=== PATIENT | female | born 1980 | race Caucasian/White ===

== ENCOUNTER 2019-11-13 13:45 | Emergency (ER) | payer OTHER ==
[2019-11-13] MEDS ORDERED: DUONEB 0.5-3 MG/3 ml Neb IH ONE ×2 (14:31→14:54)
[2019-11-13 15:18] LABS: Absolute Neutrophil Ct (ANC) 5.15 (1.4-6.9); BASOPHIL % 0.2 % (0.0-0.4); Basophil (Absolute #) 0.02 (0-0.4); Eosinophil % 2.6 % (0.00-5.0); Eosinophil (Absolute #) 0.21 (0-0.5); Hematocrit 43.2 % (35-47); Hemoglobin 14.9 gm/dl (12.0-16.0); Lymphocyte (Absolute #) 2.21 (1.0-4.6); Lymphocytes % 27.4 % (24.0-44.0); Mean Cell Volume 86.4 fl (78-100); Mean Corpuscular Hemoglobin 29.8 pg (26-32); Mean Corpuscular Hgb Concent. 34.5 g/dl (32-36); Mean Platelet Volume 11.1 fl (7.5-11.0); Monocyte (Absolute #) 0.48 (0.0-1.3); Monocytes % 5.9 % (0.0-12.0); Neutrophil % 63.9 % (36.0-66.0); Platelet Count 198 K/mm3 (150-450); Red Cell Distribution Width 13.3 % (11.5-14.0); White Blood Count 8.1 K/mm3 (4.0-10.5)
--- NOTE | 2019-11-13 15:19 | ERPHSYRPT ---
- History of Present Illness Time Seen by Provider: 11/13/19 14:24 Historian: patient Patient Subjective Stated Complaint: Patient states that she woke up with stiffness, tried to smoke a cigarette but could not. Patient tried to take a shower, but began feeling worse. Patient said that she tried to stretch it out, but began wheezing. States that she her tenderness in her sternal area with inhalation and a knot feeling underneath left shoulder blade. Triage Nursing Assessment: Patient ambualtory, alert and oriented, pink, warm and dry with face flushed. Physician History: 39 years old female with history of asthma, tobacco abuse presented in the ER with chief complaint of sudden onset substernal chest pain with shortness of breath and wheezing around 12:30 PM when she woke up. Patient reports she feels some tightness and lump feeling in the left lower back chest. Patient describes this as a feeling of tightness and stretching, aggravated with applying pressure at the back of chest and no significant relieving factors and wheezing is improved on the way to the ER. She is not short of breath at present. No fever or chills. She has a chronic smoker cough which is not any different than usual. Patient reports she was working with another person who is placed on quarantine 2 days ago for questionable coronavirus exposure but he did not have any symptoms. No definitive positive coronavirus contact. Denies any body aches, URI symptoms. Does not take any hormonal pills. No swelling in the legs. No recent travel. Timing/Duration: today, sudden, improved Activities at Onset: sleep Quality: sharpness Location: central, back Chest Pain Radiation: back Severity of Pain-Max: moderate Severity of Pain-Current: none Modifying Factors: Improves With: coughing, movement, palpation Associated Symptoms: cough, No chills, No fever, No fatigue, No weakness, No swelling/lump in chest Prior Chest Pain/Cardiac Workup: no prior chest pain Nitro Today/Relief: no nitro taken today Aspirin Treatment Today: no aspirin today Allergies/Adverse Reactions: codeine Allergy (Verified 11/13/19 14:17) Patient becomes violent Hx Tetanus, Diphtheria Vaccination/Date Given: Yes Hx Influenza Vaccination/Date Given: No Hx Pneumococcal Vaccination/Date Given: No - Past Medical History Neurological History: Migraines ENT History: No Pertinent History Cardiac History: No Pertinent History Respiratory History: Asthma Endocrine Medical History: No Pertinent History Musculoskeletal History: Arthritis GI Medical History: Other History: No Pertinent History Psycho-Social History: Depression Female Reproductive Disorders: No Pertinent History Other Medical History: chronic nausea - Past Surgical History Past Surgical History: Yes Neuro Surgical History: No Pertinent History Cardiac: No Pertinent History Respiratory: No Pertinent History Gastrointestinal: No Pertinent History Genitourinary: No Pertinent History Musculoskeletal: No Pertinent History Female Surgical History: No Pertinent History - Social History Smoking Status: Current every day smoker How long have you smoked: 20 Exposure to second hand smoke: Yes Drug Use: marijuana Patient Lives Alone: No - Female History Hx Last Menstrual Period: currently menstruating Hx Now: No - Nursing Vital Signs Nursing Vital Signs: Initial Vital Signs Temperature 98.2 F 11/13/19 13:47 Pulse Rate 75 11/13/19 13:47 Respiratory Rate 20 11/13/19 13:47 Blood Pressure 116/65 11/13/19 13:47 O2 Sat by Pulse Oximetry 94 L 11/13/19 13:47 Pain Scale Pain Intensity 7 - Physical Exam General Appearance: no apparent distress, anxiety Eye Exam: PERRL/EOMI, eyes nml inspection Ears, Nose, Throat Exam: normal ENT inspection, TMs normal, pharynx normal Neck Exam: normal inspection, non-tender, supple, full range of motion Respiratory Exam: normal breath sounds, lungs clear, No chest tenderness, No respiratory distress Cardiovascular Exam: regular rate/rhythm, normal heart sounds, normal peripheral pulses Gastrointestinal/Abdomen Exam: soft, normal bowel sounds, No tenderness Back Exam: normal inspection, other (Tenderness left mid posterior chest. 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 Skin Exam: normal color, warm SpO2 Interpretation: normal SpO2: 98 O2 Delivery: Room Air - Course Nursing assessment & vital signs reviewed: Yes EKG Interpreted by Me: RATE (75), NORMAL AXIS, NORMAL INTERVALS, Non-specific ST Changes (Nonspecific T wave changes) Ordered Tests: Active Orders 24 hr Category Date Time Status EKG-ER Only STAT Care 11/13/19 14:31 Active IV Insertion STAT Care 11/13/19 14:31 Active CHEST 1 VIEW (PORTABLE) Stat Exams 11/13/19 14:31 Completed CBC W DIFF Stat Lab 11/13/19 15:10 Completed CMP Stat Lab 11/13/19 15:10 Completed D-DIMER QUANTITATIVE Stat Lab 11/13/19 15:10 Completed HCG QUALITATIVE,SERUM Stat Lab 11/13/19 15:10 Completed Lactic Acid Stat Lab 11/13/19 15:20 Completed TROPONIN Q3H Lab 11/13/19 15:10 Completed TROPONIN Q3H Lab 11/13/19 17:45 Ordered TROPONIN Q3H Lab 11/13/19 20:45 Ordered TROPONIN Q3H Lab 11/13/19 23:45 Ordered TROPONIN Q3H Lab 11/14/19 02:45 Ordered Respiratory Therapy Assessment DAILY RT 11/13/19 15:58 Completed Medication Summary Discontinued Medications Generic Name Dose Route Start Last Admin Trade Name Freq PRN Reason Stop Dose Admin Albuterol/Ipratropium 3 ml 11/13/19 14:31 11/13/19 15:30 Duoneb 0.5-3 Mg/3 Ml Neb IH 11/13/19 14:32 3 ml STAT ONE Administration Albuterol/Ipratropium Confirm 11/13/19 14:54 Duoneb 0.5-3 Mg/3 Ml Neb Administered 11/13/19 14:55 Dose 3 ml IH .STK-MED ONE Ondansetron HCl 4 mg 11/13/19 15:35 11/13/19 15:40 Zofran 4 Mg/2 Ml Vial IV 11/13/19 15:36 4 mg STAT ONE Administration Ondansetron HCl Confirm 11/13/19 15:38 Zofran 4 Mg/2 Ml Vial Administered 11/13/19 15:39 Dose 4 mg .ROUTE .STK-MED ONE Lab/Rad Data: Laboratory Result Diagrams 11/13/19 15:10 11/13/19 15:10 Laboratory Results 11/13/19 11/13/19 11/13/19 Range/Units 15:20 15:11 15:10 WBC (4.0-10.5) K/mm3 RBC (4.1-5.4) M/mm3 Hgb (12.0-16.0) gm/dl Hct (35-47) % MCV (78-100) fl MCH (26-32) pg MCHC (32-36) g/dl RDW (11.5-14.0) % Plt Count (150-450) K/mm3 MPV (7.5-11.0) fl Gran % (36.0-66.0) % Eos # (Auto) (0-0.5) Absolute Lymphs (auto) (1.0-4.6) Absolute Monos (auto) (0.0-1.3) Lymphocytes % (24.0-44.0) % Monocytes % (0.0-12.0) % Eosinophils % (0.00-5.0) % Basophils % (0.0-0.4) % Absolute Granulocytes (1.4-6.9) Basophils # (0-0.4) D-Dimer (215-500) ng/mL Sodium (137-145) mmol/L Potassium (3.5-5.1) mmol/L Chloride (98-107) mmol/L Carbon Dioxide (22-30) mmol/L Anion Gap (5-15) MEQ/L BUN (7-17) mg/dL Creatinine (0.52-1.04) mg/dL Estimated GFR ML/MIN Glucose (74-106) mg/dL Lactic Acid 1.1 Calcium (8.4-10.2) mg/dL Total Bilirubin (0.2-1.3) mg/dL AST (14-36) U/L ALT (0-35) U/L Alkaline Phosphatase (38-126) U/L Troponin I < 0.012 (0.000-0.034) ng/mL Serum Total Protein (6.3-8.2) g/dL Albumin (3.5-5.0) g/dL Serum , Qual (Negative) Influenza Type A Ag NEGATIVE (NEGATIVE) Influenza Type B Ag NEGATIVE (NEGATIVE) RSV (PCR) NEGATIVE (Negative) 11/13/19 11/13/19 11/13/19 Range/Units 15:10 15:10 15:10 WBC (4.0-10.5) K/mm3 RBC (4.1-5.4) M/mm3 Hgb (12.0-16.0) gm/dl Hct (35-47) % MCV (78-100) fl MCH (26-32) pg MCHC (32-36) g/dl RDW (11.5-14.0) % Plt Count (150-450) K/mm3 MPV (7.5-11.0) fl Gran % (36.0-66.0) % Eos # (Auto) (0-0.5) Absolute Lymphs (auto) (1.0-4.6) Absolute Monos (auto) (0.0-1.3) Lymphocytes % (24.0-44.0) % Monocytes % (0.0-12.0) % Eosinophils % (0.00-5.0) % Basophils % (0.0-0.4) % Absolute Granulocytes (1.4-6.9) Basophils # (0-0.4) D-Dimer < 215 L (215-500) ng/mL Sodium 141 (137-145) mmol/L Potassium 3.7 (3.5-5.1) mmol/L Chloride 111 H (98-107) mmol/L Carbon Dioxide 24 (22-30) mmol/L Anion Gap 9.2 (5-15) MEQ/L BUN 10 (7-17) mg/dL Creatinine 0.59 (0.52-1.04) mg/dL Estimated GFR > 60.0 ML/MIN Glucose 86 (74-106) mg/dL Lactic Acid Calcium 9.0 (8.4-10.2) mg/dL Total Bilirubin 0.40 (0.2-1.3) mg/dL AST 18 (14-36) U/L ALT 10 (0-35) U/L Alkaline Phosphatase 91 (38-126) U/L Troponin I (0.000-0.034) ng/mL Serum Total Protein 6.4 (6.3-8.2) g/dL Albumin 3.9 (3.5-5.0) g/dL Serum , Qual NEGATIVE (Negative) Influenza Type A Ag (NEGATIVE) Influenza Type B Ag (NEGATIVE) RSV (PCR) (Negative) 11/13/19 11/13/19 Range/Units 15:10 14:31 WBC 8.1 (4.0-10.5) K/mm3 RBC 5.00 (4.1-5.4) M/mm3 Hgb 14.9 (12.0-16.0) gm/dl Hct 43.2 (35-47) % MCV 86.4 (78-100) fl MCH 29.8 (26-32) pg MCHC 34.5 (32-36) g/dl RDW 13.3 (11.5-14.0) % Plt Count 198 (150-450) K/mm3 MPV 11.1 H (7.5-11.0) fl Gran % 63.9 (36.0-66.0) % Eos # (Auto) 0.21 (0-0.5) Absolute Lymphs (auto) 2.21 (1.0-4.6) Absolute Monos (auto) 0.48 (0.0-1.3) Lymphocytes % 27.4 (24.0-44.0) % Monocytes % 5.9 (0.0-12.0) % Eosinophils % 2.6 (0.00-5.0) % Basophils % 0.2 (0.0-0.4) % Absolute Granulocytes 5.15 (1.4-6.9) Basophils # 0.02 (0-0.4) D-Dimer (215-500) ng/mL Sodium (137-145) mmol/L Potassium (3.5-5.1) mmol/L Chloride (98-107) mmol/L Carbon Dioxide (22-30) mmol/L Anion Gap (5-15) MEQ/L BUN (7-17) mg/dL Creatinine (0.52-1.04) mg/dL Estimated GFR ML/MIN Glucose (74-106) mg/dL Lactic Acid Cancelled Calcium (8.4-10.2) mg/dL Total Bilirubin (0.2-1.3) mg/dL AST (14-36) U/L ALT (0-35) U/L Alkaline Phosphatase (38-126) U/L Troponin I (0.000-0.034) ng/mL Serum Total Protein (6.3-8.2) g/dL Albumin (3.5-5.0) g/dL Serum , Qual (Negative) Influenza Type A Ag (NEGATIVE) Influenza Type B Ag (NEGATIVE) RSV (PCR) (Negative) - Progress Progress: improved, re-examined Air Movement: good Progress Note: Patient wheezing is actually improved on presentation in the ER. She is given a breathing treatment. On reevaluation feeling better. EKG showed normal sinus rhythm. She has a negative work-up in the ER for chest pain including troponin and d-dimer. Patient has some tenderness in the left mid back area. She might have some element of musculoskeletal pain. She is offered pain medication but patient does not want it. Patient has no definitive history of coronavirus positive sick contact. She has a questionable history and recommended self quarantine at home and follow-up with primary care for reevaluation. At this time she does not need any testing. Discussed signs symptoms of worsening needing return to ER which she seemed understanding. Stable for discharge. 11/13/19 16:20 Blood Culture(s) Obtained: No Antibiotics given: No Counseled pt/family regarding: lab results, diagnosis, need for follow-up, rad results, smoking cessation - Departure Departure Disposition: Home Clinical Impression: Atypical chest pain Condition: Stable Critical Care Time: No Referrals: DOCTOR,NO FAMILY [Primary Care Provider] - NOLA PEDRAZA [ACTIVE STAFF] - Follow Up with PCP (1-2 days for re evaluation) Additional Instructions: Tylenol/ibuprofen as needed. Use inhaler as needed. Do not smoke. Follow-up with your primary care physician for reevaluation tomorrow. Practice social distancing, droplet and contact precautions. Return to ER for worsening pain/ difficulty breathing/fever chills etc. Prescriptions: Albuterol 8 gm Mdi Hfa [Ventolin Hfa MDI] 8 gm IH Q4H #1 [email or web address]
--- NOTE | 2019-11-13 15:30 | XRAY ---
Indication: Chest pain. Pneumonia. Comparison: December 09. Portable chest again demonstrates normal heart, lungs, and bony thorax.
[2019-11-13] MEDS ORDERED: Zofran 4 MG/2 ML VIAL IV ONE (15:35)
[2019-11-13] MEDS ORDERED: Zofran 4 MG/2 ML VIAL ONE (15:38)
[2019-11-13 15:52] LABS: INFLUENZA A NEGATIVE (NEGATIVE); INFLUENZA B NEGATIVE (NEGATIVE); RESPIRATORY SYNCTIAL VIRUS NEGATIVE (Negative)
[2019-11-13 15:57] LABS: ALBUMIN 3.9 g/dL (3.5-5.0); ALKALINE PHOSPHATASE 91 U/L (38-126); ANION GAP 9.2 MEQ/L (5-15); BLOOD UREA NITROGEN 10 mg/dL (7-17); CHLORIDE 111 mmol/L (98-107); Carbon Dioxide 24 mmol/L (22-30); Creatinine 1 0.59 mg/dL (0.52-1.04); Glucose 86 mg/dL (74-106); Potassium 3.7 mmol/L (3.5-5.1); SGOT/AST 18 U/L (14-36); SGPT/ALT 10 U/L (0-35); SODIUM 141 mmol/L (137-145); Total Protein 6.4 g/dL (6.3-8.2)
[2019-11-13 16:35] VITALS: PULSE 84; O2SAT 95
[2019-11-13 16:39] VITALS: BP 111/70
== END 2019-11-13 16:40 | disposition home or self-care (01) ==
LOC: ED 13:45
DX: R07.89 Other chest pain (principal)
CPT/HCPCS: 36000; 36415; 71045; 80053; 81025; 83605; 84484; 85025; 85379; 87631; 93005; 94640; 96374; 99284; J2405; A9270-GY

== ENCOUNTER 2022-12-02 18:17 | Emergency (ER) | payer OTHER ==
--- NOTE | 2022-12-02 18:32 | ERPHSYRPT ---
- History of Present Illness Time Seen by Provider: 12/02/22 18:32 Source: patient Exam Limitations: no limitations Physician History: This is a 42-year-old white female patient of Dr. Bassett who presents with 3-day history of dizziness followed by headache that began this morning associated fever, nonproductive cough and muscle aches. Patient states that she has been nauseated since last evening. Patient has a history of migraine headaches, depression and chronic nausea. She is a daily smoker cigarettes. Approximately an hour and a half prior to arrival she did eat a cheeseburger per her report. She did not suffer any acute trauma to the head. She does have light sensitivity. Timing/Duration: day(s) (3) Quality: throbbing Head Pain Location: global Severity of Pain-Max: moderate Severity of Pain-Current: moderate Recent Head Trauma: no recent headache/trauma, occasional headaches (Migraine headache) Modifying Factors: Improves With: exposure to light, noise Associated Symptoms: dizziness, fever/chills, sensitive to light, No neck pain Previous symptoms: no prior history Allergies/Adverse Reactions: codeine Allergy (Verified 12/02/22 18:26) Patient becomes violent Hx Tetanus, Diphtheria Vaccination/Date Given: Yes Hx Influenza Vaccination/Date Given: No Hx Pneumococcal Vaccination/Date Given: No Travel Risk - International Travel Have you traveled outside of the country in past 3 weeks: No - Coronavirus Screening Are you exhibiting any of the following symptoms?: Yes Symptoms: Fever, Cough: New Onset, Headaches/Body Aches/Fatigue Close contact with a COVID-19 positive Pt in past 14-21 Days: No - Review of Systems Constitutional: Fever Eyes: No Symptoms Ears, Nose, & Throat: No Symptoms Respiratory: Cough Cardiac: No Symptoms Abdominal/Gastrointestinal: Nausea Musculoskeletal: Arthralgias, Myalgias Skin: No Symptoms Neurological: Dizziness, Headache Psychological: No Symptoms Endocrine: No Symptoms Hematologic/Lymphatic: No Symptoms Immunological/Allergic: No Symptoms All Other Systems: Reviewed and Negative - Past Medical History Neurological History: Migraines ENT History: No Pertinent History Cardiac History: No Pertinent History Respiratory History: Asthma Endocrine Medical History: No Pertinent History Musculoskeletal History: Arthritis GI Medical History: Other History: No Pertinent History Psycho-Social History: Depression Female Reproductive Disorders: No Pertinent History Other Medical History: chronic nausea - Past Surgical History Past Surgical History: Yes Neuro Surgical History: No Pertinent History Cardiac: No Pertinent History Respiratory: No Pertinent History Gastrointestinal: No Pertinent History Genitourinary: No Pertinent History Musculoskeletal: No Pertinent History Female Surgical History: No Pertinent History - Social History Smoking Status: Current every day smoker How long have you smoked: 20 Exposure to second hand smoke: Yes Drug Use: marijuana Patient Lives Alone: No - Nursing Vital Signs Nursing Vital Signs: Initial Vital Signs Temperature 100.4 F 12/02/22 18:28 Pulse Rate 119 H 12/02/22 18:28 Respiratory Rate 18 12/02/22 18:28 Blood Pressure 124/95 12/02/22 18:28 O2 Sat by Pulse Oximetry 97 12/02/22 18:28 Pain Scale Pain Intensity 0 - Physical Exam General Appearance: mild distress, alert, anxiety Eye Exam: PERRL/EOMI, eyes nml inspection Ears, Nose, Throat Exam: normal ENT inspection, moist mucous membranes Neck Exam: normal inspection, non-tender, supple, full range of motion Respiratory Exam: normal breath sounds, lungs clear, No chest tenderness, No respiratory distress Cardiovascular Exam: tachycardia Gastrointestinal/Abdominal Exam: soft, normal bowel sounds, No tenderness Back Exam: normal inspection, normal range of motion, No CVA tenderness, No vertebral tenderness Extremity Exam: normal inspection, normal range of motion, pelvis stable Mental Status Exam: alert, 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 x 3, 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 Exam: normal hearing, normal speech, PERRL Motor/Sensory Exam: no motor deficit, no sensory deficit, no pronator drift Skin Exam: normal color, warm, dry Lymphatic Exam: No adenopathy SpO2 Interpretation: normal O2 Delivery: Room Air - Course Nursing assessment & vital signs reviewed: Yes Ordered Tests: Active Orders 24 hr Category Date Time Status HEAD WITHOUT CONTRAST [CT] Stat Exams 12/02/22 19:47 Taken UA W/RFX UR CULTURE Stat Lab 12/02/22 22:10 Completed Medication Summary Discontinued Medications Generic Name Dose Route Start Last Admin Trade Name Freq PRN Reason Stop Dose Admin Hydromorphone HCl 1 mg 12/02/22 18:56 12/02/22 19:14 Hydromorphone 1 Mg/1ml Inj 1 Mg/Ml Syringe IM 12/02/22 18:57 1 mg STAT ONE Administration Hydromorphone HCl Confirm 12/02/22 19:10 Hydromorphone 1 Mg/1ml Inj 1 Mg/Ml Syringe Administered 12/02/22 19:11 Dose 1 mg .ROUTE .STK-MED ONE Ondansetron HCl 4 mg 12/02/22 18:57 12/02/22 19:12 Zofran 4 Mg/Udtablet Orally Disintegrating PO 12/02/22 18:58 4 mg STAT ONE Administration Ondansetron HCl Confirm 12/02/22 19:10 Zofran 4 Mg/Udtablet Orally Disintegrating Administered 12/02/22 19:11 Dose 4 mg .ROUTE .STK-MED ONE Lab/Rad Data: Laboratory Results 12/02/22 12/02/22 Range/Units 22:10 19:15 Urine Color Dark Yellow A (Yellow) Urine Appearance Clear (Clear) Urine pH 6.5 (4.6-8.0) Ur Specific [place] >=1.030 A (1.005-1.030) Urine Protein Trace A (Negative) Urine Glucose (UA) Negative (Negative) mg/dL Urine Ketones Trace A (Negative) Urine Blood Negative (Negative) Urine Nitrite Negative (Negative) Urine Bilirubin Negative (Negative) Urine Urobilinogen 2.0 A (0.2) mg/dL Ur Leukocyte Esterase Trace A (Negative) U Hyaline Cast (Auto) NONE SEEN (0-2) /LPF Urine Microscopic RBC 0-2 (0-5) /HPF Urine Microscopic WBC 3-5 (0-5) /HPF Ur Epithelial Cells Rare (None Seen) /HPF Urine Bacteria None Seen (None Seen) /HPF Urine Culture Reflexed NO (NO) Influenza Type A Ag NEGATIVE (NEGATIVE) Influenza Type B Ag NEGATIVE (NEGATIVE) RSV (PCR) NEGATIVE (NEGATIVE) SARS-CoV-2 (PCR) NEGATIVE (NEGATIVE) - Progress Progress: improved, re-examined Air Movement: good Progress Note: 12/02/22 21:48 Patient asleep on reexamination. She is more comfortable. We are awaiting her urinalysis. CAT scan of her head without contrast shows a 6 mm left vortex benign meningioma that is calcified. No acute intracranial abnormalities. This patient's medical issue is 1 of low to moderate complexity. The level of complexity and the work-up was based on the review of the patient's medical history, review of the patient's medications, review of the patient's allergy list, history of present illness and physical findings on examination. The work-up performed as a urinalysis, flu swabs and a CAT scan of her abdomen pelvis. We provided the patient with 1 mg intramuscular Dilaudid and 4 mg Zofran ODT. This provided the patient with significant relief. She was sleeping on my reexamination. We are awaiting the urinalysis. Depending on the results of this urinalysis, the patient be discharged home or we will provide her with a prescription being sent to her pharmacy for antibiotics. 12/02/22 22:28 Patient has chronic nausea. We will make sure that we send a prescription of antiemetic to her pharmacy via the computer. We will give her a dose of Compazine intramuscularly at this time. Blood Culture(s) Obtained: No Antibiotics given: No Counseled pt/family regarding: lab results, diagnosis, need for follow-up, rad results Medical Desision Making - Independent Historian Additional History obtained from: Family - Discussion of managment Reviewed:: Test results (Brother) Agreed on:: Treatment plan, need for follow-up - Diagnostic Testing Radiological Interpretation: Reviewed by me, Teleradiologist Report - Risk of complications The pt has a mod risk of morbidity or mortality based on: Need for prescription drug management - Departure Departure Disposition: Home Clinical Impression: Headache, Chronic nausea, Fever Condition: Stable Critical Care Time: No Referrals: TIFFANY BASSETT MD [Primary Care Provider] - Follow up/PCP as directed Additional Instructions: Drink plenty of clear liquids. Advance your diet slowly. Take your medications as prescribed. Follow-up with your primary care physician and neurologist for further evaluation. May use Tylenol and ibuprofen and/or Excedrin for headache pain. Contact your primary care doctor tomorrow for further management of your headache. Forms: Work/School Release Form Prescriptions: Promethazine HCl 25 mg [Phenergan 25 mg] 25 mg PO Q8H PRN PRN #9 tablet PRN Reason: Nausea/Vomiting
[2022-12-02] MEDS ORDERED: Hydromorphone 1 mg/ml Injection IM ONE (18:56)
[2022-12-02] MEDS ORDERED: ZOFRAN ODT 4 MG PO ONE (18:57)
[2022-12-02] MEDS ORDERED: Hydromorphone 1 mg/ml Injection ONE (19:10)
[2022-12-02] MEDS ORDERED: ZOFRAN ODT 4 MG ONE (19:10)
[2022-12-02 20:00] LABS: INFLUENZA A NEGATIVE (NEGATIVE); INFLUENZA B NEGATIVE (NEGATIVE); RESPIRATORY SYNCTIAL VIRUS NEGATIVE (NEGATIVE); SARS-CoV-2 Xpert Express NEGATIVE (NEGATIVE)
[2022-12-02 22:21] LABS: Appearance Clear (Clear); Bacteria None Seen /HPF (None Seen); Bilirubin Negative (Negative); Blood Negative (Negative); Epithelial Cells Rare /HPF (None Seen); Glucose, Urine Negative (Negative); Hyaline Casts NONE SEEN /LPF (0-2); Ketones Trace (Negative); Leukocyte Esterase Trace (Negative); Nitrite Negative (Negative); Ph 6.5 (4.6-8.0); Protein,Urine Dip Trace (Negative); RBC 0-2 /HPF (0-5); Specific Gravity >=1.030 (1.005-1.030)
[2022-12-02 22:22] LABS: ADD URINE CULTURE? NO (NO)
[2022-12-02] MEDS ORDERED: Compazine 10 MG/2 ML IM ONE (22:27)
[2022-12-02 22:31] VITALS: BP 122/61; PULSE 86; O2SAT 97
[2022-12-02] MEDS ORDERED: Compazine 10 MG/2 ML ONE (22:32)
--- NOTE | 2022-12-03 08:41 | XRAY ---
Indication: Headache and dizziness. Multiple contiguous axial images obtained through the head without contrast. Comparison: None Ventriculosulcal pattern appears symmetric. No acute intracranial hemorrhage, abnormal extra-axial fluid collection, or mass effect. Fourth ventricle is midline without hydrocephalus. Vital-white matter differentiation preserved. Left vertex demonstrates 6 mm calcified meningioma. Bony calvarium intact. Visualized paranasal sinuses and mastoid air cells are clear. Impression: 6 mm left vertex calcified meningioma. Remaining CT head without contrast exam is negative.
== END 2022-12-02 22:46 | disposition home or self-care (01) ==
LOC: ED 18:17
DX: R51.9 Headache, unspecified (principal); R50.9 Fever, unspecified; R11.0 Nausea; R42 Dizziness and giddiness; R05.1 Acute cough; M79.10 Myalgia, unspecified site; Z72.0 Tobacco use
CPT/HCPCS: 0241U; 70450; 81001; 96372; 99284; J1170; Q0162